=== PATIENT | male | born 1990 | race African-American/Black ===

== ENCOUNTER 2020-02-19 10:48 | Emergency (ER) | payer OTHER ==
[~2020-02-19] VITALS: Ht 172.7 cm; Wt 59.1 kg
[2020-02-19] MEDS ORDERED: EYEDRO5 OP (11:08)
--- NOTE | 2020-02-19 12:25 | REP ---
Head CT without contrast: History: Head trauma. Comparison study: No comparison study. CT findings: Bone window settings demonstrate an intact bony calvarium. There is no evidence of skull fracture or incidental bony calvarial lesion. The visualized paranasal sinuses appear clear. No intraorbital abnormality is seen. On soft tissue window setting images; the lateral, third, and fourth ventricles are normal in size and position. Cameron-white differentiation pattern is normal above and below the tentorium. There are is no evidence of intracranial hemorrhage. No mass, edema, infarction, or midline shift is seen. No extra-axial fluid collection is appreciated. Impression: Negative noncontrast head CT. Electronically Signed by Kamar Major MD 02/19/2020 12:17 P
--- NOTE | 2020-02-19 12:27 | REP ---
CT study of the cervical spine without contrast: History: Trauma. Technique: Helical scanning is acquired and overlapping 2 mm high resolution axial images were generated and reviewed at bone and soft tissue window settings. Coronal and sagittal multiplanar re-formations images are generated. CT findings: There is no evidence of cervical spine element fracture. No skull base fracture is seen. Cervical vertebral body heights are preserved. Alignment is normal. Facet joints are normally aligned bilaterally at each cervical level on multiplanar re-formations images. There is no evidence of intraspinal or paraspinal hematoma. No extra vertebral abnormality is seen. Impression: Negative CT study of the cervical spine without contrast. No fracture seen. Electronically Signed by Kamar Major MD 02/19/2020 12:19 P
[2020-02-19] MEDS ORDERED: IBUPROFEN 600MG TAB PO ONE (12:30)
[2020-02-19 12:34] VITALS: BP 129/78
== END 2020-02-19 12:40 | disposition home or self-care (01) ==
LOC: M ED 10:48 → EDBD 10:48 → M ED 12:40
DX: S00.03XA Contusion of scalp, initial encounter (principal); W31.89XA Contact with other specified machinery, initial encounter; H54.8 Legal blindness, as defined in USA; B18.1 Chronic viral hepatitis B without delta-agent; Y92.149 Unspecified place in prison as the place of occurrence of the external cause; Y93.B1 Activity, exercise machines primarily for muscle strengthening; Y99.9 Unspecified external cause status